=== PATIENT | male | born 2000 | race Caucasian/White ===

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

== ENCOUNTER 2020-04-03 11:06 | Emergency (ER) | payer OTHER ==
--- NOTE | 2020-04-03 11:20 | ED Physician Documentation ---
PD HPI NVD - Stated complaint Stated Complaint: N/V - Chief complaint Chief Complaint: Abd Pain - History obtained from History obtained from: Patient - History of Present Illness Timing - onset: Today (Onset early this morning of nausea with vomiting once but continued significant nausea. He states there was considerable dry heaving prior to the emesis itself and when he did vomit he noted some small amount of red blood. It was a small trace in among the stomach contents of some bilious and stomach acids. No bright red blood per se. He does not have any diarrhea. He is not having any chest pain or shortness of breath. He continues with some nausea and is here for evaluation.) Timing - duration: Hours Timing - details: Abrupt onset, Still present Associated symptoms: Hematemesis (slight amount with the single emesis). No: Fever, Abdominal pain, Chest pain, Melena, Near syncope / syncope Contributing factors: No: Sick contact, Bad food, Travel, Alcohol use Improved by: No: Vomiting Similar symptoms before: Has not had sx before Recently seen: Not recently seen Review of Systems Constitutional: denies: Fever, Chills, Myalgias Nose: denies: Rhinorrhea / runny nose, Congestion Throat: denies: Sore throat Cardiac: denies: Chest pain / pressure Respiratory: denies: Cough GI: reports: Abdominal Pain (epigastric discomfort), Nausea, Vomiting. denies: Abdominal Swelling, Constipation, Bloody / black stool Neurologic: denies: Generalized weakness, Near syncope PD PAST MEDICAL HISTORY - Past Medical History Past Medical History: No - Past Surgical History Past Surgical History: No - Present Medications Home Medications: Ambulatory Orders Medication Instructions Recorded Confirmed predniSONE [Deltasone] 60 mg PO DAILY 5 Days tablet 03/07/18 Famotidine 20 mg PO DAILY #15 tablet 04/03/20 Ondansetron Odt [Zofran] 4 mg TL Q6H PRN #10 tablet 04/03/20 - Allergies Allergies/Adverse Reactions: Allergies Allergy/AdvReac Type Severity Reaction Status Date / Time No Known Drug Allergies Allergy Verified 03/07/18 16:58 - Social History Does the pt smoke?: No Smoking Status: Never smoker Does the pt drink ETOH?: Yes Does the pt have substance abuse?: No - Immunizations Immunizations are current?: Yes - POLST Patient has POLST: No PD ED PE NORMAL - Vitals Vital signs reviewed: Yes - General General: Alert and oriented X 3, No acute distress, Well developed/nourished - HEENT HEENT: Pharynx benign - Neck Neck: Supple, no meningeal sign, No adenopathy - Cardiac Cardiac: RRR, No murmur - Respiratory Respiratory: Clear bilaterally - Abdomen Abdomen: Normal bowel sounds, Soft, Non tender, Non distended, No organomegaly - Derm Derm: Normal color, Warm and dry - Extremities Extremities: Normal ROM s pain - Neuro Neuro: Alert and oriented X 3, No motor deficit, Normal speech Results - Vitals Vitals: Vital Signs - 24 hr 04/03/20 04/03/20 11:10 13:04 Temperature 37.5 C Heart Rate 81 65 Respiratory 16 16 Rate Blood Pressure 160/84 H 152/79 H O2 Saturation 98 100 Oxygen O2 Source Room air - Labs Labs: Laboratory Tests 04/03/20 04/03/20 11:50 11:50 WBC 7.4 RBC 5.44 Hgb 16.5 Hct 45.8 MCV 84.2 MCH 30.3 MCHC 36.0 RDW 11.7 L Plt Count 262 MPV 9.6 Neut # (Auto) 5.4 Lymph # (Auto) 1.[address] [place] # (Auto) 0.5 Eos # (Auto) 0.0 Baso # (Auto) 0.0 Absolute Nucleated RBC 0.00 Nucleated RBC % 0.0 Sodium 138 Potassium 3.9 Chloride 101 Carbon Dioxide 27 Anion Gap 10.0 BUN 10 Creatinine 1.1 Estimated GFR (MDRD) 85 L Glucose 102 H Calcium 9.2 Total Bilirubin 0.8 AST 20 ALT 23 Alkaline Phosphatase 63 Total Protein 7.7 Albumin 4.5 Globulin 3.2 Albumin/Globulin Ratio 1.4 Lipase 28 PD MEDICAL DECISION MAKING - ED course Complexity details: re-evaluated patient (He is feeling improved after some IV fluids and medicines. He is able to tolerate water and crackers with just a minimal feeling of nausea but no vomiting. He does feel improved enough to try going home.), considered differential, d/w patient Departure - Departure Disposition: Home, Self Care Clinical Impression: Nausea and vomiting in adult patient Condition: Stable Record reviewed to determine appropriate education?: Yes Instructions: ED Nausea Vomiting Follow-Up: JOSE Ponce [Provider Group] Prescriptions: Famotidine 20 mg PO DAILY #15 tablet Ondansetron Odt [Zofran] 4 mg TL Q6H PRN #10 tablet PRN Reason: Nausea / Vomiting Comments: Frequent fluids and's bland food initially today. Off work today due to the acute illness. Presumably this will be better by tomorrow. Ondansetron if needed for nausea. Add antacid such as Maalox or Mylanta if needed as well. Your stomach will likely be irritated for several days or more so be gentle with food. Consider an acid reducing medicine such as famotidine daily for a week or so. Recheck if not better over the next day or 2. Return if worsening. Discharge Date/Time: 04/03/20 13:14
[2020-04-03] MEDS ORDERED: ONDANSETRON 4 MG/2 ML VIAL IVP STA (11:44)
[2020-04-03] MEDS ORDERED: SODIUM CHLORIDE 0.9% 1,000 ML IV STA (11:44)
[2020-04-03] MEDS ORDERED: FAMOTIDINE 20 MG/2 ML SYRINGE IVP STA (11:45)
[2020-04-03 11:58] LABS: BASOPHILS % (AUTO) 0.5 %; EOSINOPHILS % (AUTO) 0.5 %; HGB - HEMOGLOBIN 16.5 g/dL (14.0-18.0); LYMPHOCYTES # (AUTO) 1.3 10^3/uL (1.5-3.5); LYMPHOCYTES % (AUTO) 17.8 %; MEAN CORPUSCULAR HEMOGLOBIN 30.3 pg (27.0-31.0); MEAN CORPUSCULAR VOLUME 84.2 fL (80.0-94.0); MEAN PLATELET VOLUME 9.6 fL (7.4-11.4); MONOCYTES # (AUTO) 0.5 10^3/uL (0.0-1.0); MONOCYTES % (AUTO) 7.2 %; NEUTROPHILS # (AUTO) 5.4 10^3/uL (1.5-6.6); NEUTROPHILS % (AUTO) 73.6 %; PLT - PLATELET COUNT 262 10^3/uL (130-450); RED BLOOD COUNT 5.44 10^6/uL (4.70-6.10); RED CELL DISTRIBUTION WIDTH 11.7 % (12.0-15.0); WHITE BLOOD COUNT 7.4 x10^3/uL (4.8-10.8)
[2020-04-03 12:11] LABS: ALBUMIN 4.5 g/dL (3.2-5.5); ALBUMIN/GLOBULIN RATIO 1.4 (1.0-2.2); BILIRUBIN,TOTAL 0.8 mg/dL (0.2-1.0); CALCIUM 9.2 mg/dL (8.5-10.3); CREATININE 1.1 mg/dL (0.6-1.2); TOTAL PROTEIN 7.7 g/dL (6.7-8.2)
[2020-04-03] MEDS ORDERED: MAG HYDROX/AL HYDROX/SIMETH 30 ML UDC PO STA (13:01)
[2020-04-03 13:05] VITALS: BP 152/79
== END 2020-04-03 13:14 | disposition home or self-care (01) ==
LOC: ED 11:06
DX: R11.2 Nausea with vomiting, unspecified (principal)
CPT/HCPCS: 36415; 80053; 83690; 85025; 96361; 96374; 99283; 99284; A9270